=== PATIENT | female | born 1985 | race Caucasian/White ===

== ENCOUNTER → 2019-03-26 12:34 | Outpatient (CLI) | payer MEDICAID ==
[2010-04-07 15:28] VITALS: BMI 25.8
[~2019-03-26 12:34] MED LIST: ATIVAN1 MG PO; MOBIC7.5 MG PO; NEURONTIN 400400 MG PO; PAXIL20 MG PO; ULTRAM50 MG PO
== END | disposition home or self-care (01) ==
LOC: D.MRI 12:34
PROVIDERS: ATTEND Orthopaedic Surgery
DX: M67.431 Ganglion, right wrist (principal)

== ENCOUNTER → 2019-03-29 16:20 | Emergency (ER) | payer MEDICAID ==
[~2019-03-29] VITALS: Ht 167.6 cm; Wt 81.8 kg
[2019-03-29 16:33] VITALS: BP 150/100; Ht 167.6 cm; Wt 81.8 kg
== END | disposition home or self-care (01) ==
LOC: D.ER 16:20
DX: M67.431 Ganglion, right wrist (principal)

== ENCOUNTER 2019-04-12 06:48 | Day surgery (SDC) | payer MEDICAID | END 2019-04-12 12:20 | disposition home or self-care (01) | LOC: D.OPS 06:48 | DX: M67.431 Ganglion, right wrist (principal); S65.111A Laceration of radial artery at wrist and hand level of right arm, initial encounter; Z01.812 Encounter for preprocedural laboratory examination ==

== ENCOUNTER → 2019-05-15 11:18 | Outpatient (CLI) | payer MEDICAID ==
[2019-04-12 08:18] VITALS: BMI 30.7
[~2019-05-15 11:18] MED LIST changes: +DILAUDID4 MG PO; +VISTARIL50 MG PO
== END | disposition home or self-care (01) ==
LOC: D.LABREF 11:18
PROVIDERS: ATTEND Nurse Practitioner Family
DX: M25.531 Pain in right wrist (principal)

== ENCOUNTER → 2019-05-15 16:19 | Outpatient (CLI) | payer MEDICAID ==
[2019-04-12 08:18] VITALS: BMI 30.7
== END | disposition home or self-care (01) ==
LOC: D.LABREF 16:19
PROVIDERS: ATTEND Nurse Practitioner Family
DX: M25.531 Pain in right wrist (principal)

== ENCOUNTER 2019-05-23 21:12 | Emergency (ER) | payer MEDICAID ==
[2019-05-23 21:17] VITALS: BMI 28.8
[2019-05-23 22:05] LABS: BASOPHILS 0.1 % (0-2); EOSINOPHILS 0.2 % (0-7); HEMATOCRIT 40.2 % (36.0-48.0); HEMOGLOBIN 14.3 g/dL (12-16); IMMATURE GRANULOCYTES 0.3 % (0-5); LYMPHOCYTES 8.5 % (15-50); MCH 29.6 pg (26.0-34.0); MCHC 35.6 g/dL (31.0-37.0); MCV 83.2 fL (80.0-100.0); MEAN PLATELET VOLUME 9.3 fL (7.4-10.4); MONOCYTES 3.6 % (2-11); NEUTROPHILS 87.3 % (40-80); PLATELET COUNT 286 10x3/uL (130-400); RBC 4.83 10x6/uL (4.00-5.40); WBC 10.1 10x3/uL (4.8-10.8)
[2019-05-23] MEDS ORDERED: TORADOL10 MG PO (22:17)
[2019-05-23 22:26] LABS: ALBUMIN 4.1 g/dL (3.4-5.0); ALKALINE PHOSPHATASE 84 U/L (46-116); ALT (SGPT) 22 U/L (10-68); BILIRUBIN - TOTAL 0.37 mg/dL (0.2-1.3); CALC OSMOLALITY 270 mosm/kg (275-300); CALCIUM 9.3 mg/dL (8.5-10.1); CARBON DIOXIDE 22.8 mmol/L (21.0-32.0); CHLORIDE - SERUM 101 mmol/L (98-107); CREATININE - SERUM 0.8 mg/dL (0.6-1.3); GLUCOSE 104 mg/dL (74-106); POTASSIUM - SERUM 3.6 mmol/L (3.5-5.1); PROTEIN - SERUM 8.4 g/dL (6.4-8.2); SODIUM 135 mmol/L (136-145); UREA NITROGEN 14 mg/dL (7-18); eGFR NON AFRICAN AMERICAN 87 mL/min (90-120)
[2019-05-23 22:43] VITALS: BP 172/91
[2019-08-01] MEDS ORDERED: [UNRECOGNIZED DRUG - OTHER] PO (13:12)
[2019-08-01] MEDS ORDERED: HYDROCODON-ACE1 EA10 PO (13:16)
== END 2019-05-23 22:44 | disposition home or self-care (01) ==
LOC: D.ER 21:12
PROVIDERS: Family Medicine
DX: G89.18 Other acute postprocedural pain (principal); I10 Essential (primary) hypertension

== ENCOUNTER 2019-07-01 18:10 | Emergency (ER) | payer MEDICAID ==
[~2019-07-01] VITALS: Ht 167.6 cm; Wt 86.4 kg
[~2019-07-01 18:10] MED LIST changes: +TORADOL10 MG PO
[2019-07-01 18:22] VITALS: Ht 167.6 cm; Wt 86.4 kg
[2019-07-01] MEDS ORDERED: VALIUM5 MG PO (18:26)
[2019-07-01 20:54] VITALS: BP 132/94
[2019-08-01] MEDS ORDERED: [UNRECOGNIZED DRUG - OTHER] PO (13:12)
[2019-08-01] MEDS ORDERED: HYDROCODON-ACE1 EA10 PO (13:16)
== END 2019-07-01 20:55 | disposition home or self-care (01) ==
LOC: D.ER 18:10
DX: S93.602A Unspecified sprain of left foot, initial encounter (principal); W01.0XXA Fall on same level from slipping, tripping and stumbling without subsequent striking against object, initial encounter; I10 Essential (primary) hypertension

== ENCOUNTER → 2019-07-10 14:23 | Outpatient (CLI) | payer MEDICAID ==
[2019-07-01 18:22] VITALS: BMI 30.7
[~2019-07-10 14:23] MED LIST changes: +HYDROCODON-ACE1 EA10 PO; +IBUPROFEN800 MG PO; +VALIUM5 MG PO; +[UNRECOGNIZED DRUG - OTHER] PO
== END | disposition home or self-care (01) ==
LOC: D.MRI 14:23
PROVIDERS: ATTEND Nurse Practitioner Family
DX: M67.432 Ganglion, left wrist (principal)

== ENCOUNTER 2019-08-02 06:19 | Day surgery (SDC) | payer MEDICAID ==
[~2019-08-02] VITALS: Ht 167.6 cm; Wt 86.4 kg
[~2019-08-02 06:19] MED LIST changes: -IBUPROFEN800 MG PO
[2019-08-02] MEDS ORDERED: VALIUM5 MG PO (06:59)
[2019-08-02] MEDS ORDERED: IBUPROFEN800 MG PO (07:00)
[2019-08-02 07:13] LABS: HEMATOCRIT 39.4 % (36.0-48.0); HEMOGLOBIN 13.8 g/dL (12-16); MCH 29.2 pg (26.0-34.0); MCV 83.3 fL (80.0-100.0); MEAN PLATELET VOLUME 9.8 fL (7.4-10.4); RBC 4.73 10x6/uL (4.00-5.40); RDW 12.8 % (11.5-14.5); WBC 6.4 10x3/uL (4.8-10.8)
[2019-08-02 07:21] VITALS: BP 142/94; Ht 167.6 cm; Wt 86.4 kg
--- NOTE | 2019-08-02 08:20 | NUR ---
According to the suicide assessment the patient rates low and does not require a 1:1 observation.
[2019-08-02] MEDS ORDERED: HYDROCODON-ACE1 EA10 PO (10:32)
--- NOTE | 2019-08-02 12:33 | NUR ---
1107-REC'D FROM RR. AWAKE AND ALERT,VSS. DRESSING TO LEFT HAND CDI. IV PATENT TO LEFT HAND AT K[facility].CL IN EASY REACH DRINKING ICE WATER
--- NOTE | 2019-08-02 12:34 | NUR ---
1130-FULL LIQUID TRAY TO ROOM.
--- NOTE | 2019-08-02 12:34 | NUR ---
1155-TOLERATED FOOD TRAY.DRESSING TO LEFT HAND CDI.CAP REFILL WNL.ABLE TO WIGGLE FINGERS. REMOVED IV FROM RIGHT HAND WITH CATH INTACT DISPOSED INTO SHARPS,COVERED SITE WITH BANDAID. GENTLEMEN WITH PT LEFT TO HAVE LUNCH. REVIEWED DISCHARGE INSTRUCTIONS WITH PT. VERBALIZED UNDERSTANDING WITHOUT QUESTIONS OR CONCERNS.
--- NOTE | 2019-08-02 12:37 | NUR ---
1230-DISCHARGE CRITERIA MET. ESCORTED OUT VIA W/C WITH FRIEND TO DRIVE HOME.
--- NOTE | 2019-08-02 13:00 | OP ---
PATIENT NAME: FRANC FRY MEDICAL RECORD: [id number] :86 LOCATION:[facility] ADMISSION DATE: SURGEON: ELLEN SINGLETARY DO DATE OF OPERATION: 08/02/2019 PROCEDURE PERFORMED: Excision of a dorsal wrist ganglion of the left wrist. PREOPERATIVE DIAGNOSIS: Left wrist dorsal ganglion. POSTOPERATIVE DIAGNOSIS: Left wrist dorsal ganglion. INDICATIONS: Ms. Fry is a 34-year-old female who has had a dorsal wrist ganglion for quite some time. She was tired of dealing with the pain that was affecting her activities of daily living and wanted it removed. I told her we could do that. There was a good chance of recurrence and damage to nerves and vessels in the area. She was okay with that and signed the consent. SURGEON: Ellen Singletary DO DESCRIPTION OF PROCEDURE: The patient was taken to the operative suite, laid in supine position, given 1 gram Ancef preoperatively. Left upper extremity was prepped and draped in sterile fashion. Timeout was performed, everyone was in agreement as to the correct side, site, patient, and procedure. Left lower extremity was then exsanguinated with an Esmarch and tourniquet was inflated to 250 mmHg, was up for 21 minutes. Incision was made over the ganglion cyst and careful dissection was made down around the cyst. The cyst then ruptured. The cyst was taken off the wrist capsule and the stalk was removed. This part was burned with the Bovie and pickup and then a 2-0 Vicryl was used to stitch the capsule back up where the stalk had been coming off of it. Tourniquet was then let down and any bleeding was coagulated with a pickup and Bovie. The incision was then injected with 0.5% Marcaine with epinephrine 10 mL of it and then closed with 4-0 Monocryl in inverted interrupted fashion. Steri-Strips, Adaptic, 4 x 4's, Kerlix, and Coban was lightly wrapped on the hand. The patient was awakened and taken to recovery in stable condition. BLOOD LOSS: Minimal. COMPLICATIONS: None. TRANSINT:[id number] Voice Confirmation ID: [id number] DOCUMENT ID: [id number] ELLEN SINGLETARY DO at 1300 CC: [id number] DICTATION DATE: 08/02/19 1035 METEOROLOGY FACULTY MEMBER: 08/02/19 1234 [facility] [place] 08/02/19 [facility] [address] [id number]
== END 2019-08-02 12:30 | disposition home or self-care (01) ==
LOC: D.OPS 06:19 → D.PAN 08:45 → D.OPS 08:45 → D.PAN 09:30 → D.OPS 09:30 → D.PAN 09:45 → D.OPS 12:30
PROVIDERS: Anesthesiology; ATTEND Orthopaedic Surgery
DX: M67.432 Ganglion, left wrist (principal)

== ENCOUNTER 2020-05-11 18:35 | Emergency (ER) | payer MEDICAID ==
[~2020-05-11] VITALS: Ht 167.6 cm; Wt 83.2 kg
[~2020-05-11 18:35] MED LIST changes: +IBUPROFEN800 MG PO
[2020-05-11 19:09] VITALS: Ht 167.6 cm; Wt 83.2 kg
[2020-05-11] MEDS ORDERED: ZANAFLEX4 MG (19:13)
[2020-05-11] MEDS ORDERED: HYDROCODON-ACE1 EAC7 PO (19:13)
[2020-05-11] MEDS ORDERED: LYRICA75 MG (19:13)
[2020-05-11] MEDS ORDERED: DEPAKOTE125 MG (19:13)
[2020-05-11] MEDS ORDERED: XANAX0.5 MG (19:14)
[2020-05-11] MEDS ORDERED: TRAZODONE HCL150 MG PO (19:14)
[2020-05-11 20:34] VITALS: BP 122/89
== END 2020-05-11 20:34 | disposition home or self-care (01) ==
LOC: D.ER 18:35
DX: M54.5 Low back pain (principal); G89.29 Other chronic pain; I10 Essential (primary) hypertension; J45.909 Unspecified asthma, uncomplicated

== ENCOUNTER → 2021-02-25 16:49 | Outpatient (CLI) | payer MEDICAID ==
[~2021-02-25 16:49] MED LIST changes: +DEPAKOTE125 MG; +HYDROCODON-ACE1 EAC7 PO; +LYRICA75 MG; +ROXICODONE15 MG PO; +TRAZODONE HCL150 MG PO; +XANAX0.5 MG; +ZANAFLEX4 MG
== END | disposition home or self-care (01) ==
LOC: D.LABREF 16:49
PROVIDERS: ATTEND Internal Medicine Gastroenterology
DX: K31.89 Other diseases of stomach and duodenum (principal)